=== PATIENT | female | born 1985 | race African-American/Black ===

== ENCOUNTER 2017-01-02 12:15 | Emergency (ER) | payer SELFPAY ==
[~2017-01-02] VITALS: Ht 149.9 cm; Wt 65.8 kg
--- NOTE | 2017-01-02 13:22 | Emergency Room Report ---
History of Present Illness General Chief Complaint: Constipation Source: Patient Present Illness HPI 31-year-old female presents emergency department complaining of constipation x3 days. Patient states she's having to strain more than usual and she isn't as productive as she normally is. Patient reports that she feels she needs medication to help her with bowel movements. Patient states she normally is on the constipated side and will have a bowel movement every 3 days however she states she doesn't usually have to strain this much. she denies rectal pain, denies bloody stool. Denies nausea vomiting, or hx of hemorrhoids. She denies abdominal pain, patient reports abdominal fullness as though she needs to have a bowel movement. denies dysuria, hematuria,rashes, or . denies recent changes in weight, night sweats, personal or familial hx of cancer. Denies CP, Palpitations, LOC, AMS, dizziness, Changes in Vision, Sensation, paresthesias, or a sudden severe headache. Allergies: Coded Allergies: No Known Allergies (Unverified , 01/02/17) Patient History Past Medical History: see triage record Past Surgical History: none Pertinent Family History: none Last Menstrual Period: 12/20/16 Now: No Reviewed Nursing Documentation: PMH: Agreed, PSxH: Agreed Nursing Documentation-PMH Hx Hypertension: Yes Review of Systems All Other Systems: negative except mentioned in HPI Physical Exam Vital Signs Date Time Temp Pulse Resp B/P Pulse Ox O2 Delivery O2 Flow Rate FiO2 01/02/17 12:31 98.2 77 15 162/117 99 Room Air Sp02 EP Interpretation: reviewed, normal General Appearance: no apparent distress, alert, GCS 15, non-toxic Head: normocephalic, atraumatic Eyes: bilateral eye PERRL, bilateral eye normal inspection ENT: hearing grossly normal, normal pharynx, no angioedema, normal voice Neck: full range of motion, supple/symm/no masses Respiratory: lungs clear, normal breath sounds, speaking full sentences Cardiovascular #1: regular rate, rhythm, no edema Gastrointestinal: normal bowel sounds, non tender, soft, non-distended, no guarding, no rebound, other - Negative Redding signs, Negative MacBurney's sign , Negative Rosvigns Sign, Negative Psoas, No Peritoneal signs. Rectal: deferred Genitourinary: normal inspection, no CVA tenderness Musculoskeletal: back normal, gait/station normal, normal range of motion Neurologic: alert, oriented x3, responsive, motor strength/tone normal, sensory intact, speech normal Psychiatric: judgement/insight normal, memory normal, mood/affect normal Skin: normal color, no rash, warm/dry, well hydrated Lymphatic: no adenopathy Medical Decision Making PA Attestation Dr. Freire is my supervising Physician whom patient management has been discussed with. Diagnostic Impression: Primary Impression: Constipation Qualified Codes: K59.00 - Constipation, unspecified ER Course 31-year-old female presents emergency department complaining of constipation x3 days. Patient states she's having to strain more than usual and she isn't as productive as she normally is. Patient reports that she feels she needs medication to help her with bowel movements. Patient states she normally is on the constipated side and will have a bowel movement every 3 days however she states she doesn't usually have to strain this much. she denies rectal pain, denies bloody stool. Denies nausea vomiting, or hx of hemorrhoids. She denies abdominal pain, patient reports abdominal fullness as though she needs to have a bowel movement. denies dysuria, hematuria,rashes, or . denies recent changes in weight, night sweats, personal or familial hx of cancer. Denies CP, Palpitations, LOC, AMS, dizziness, Changes in Vision, Sensation, paresthesias, or a sudden severe headache. Ddx considered but are not limited to constipation , appendicitis, SBO, ectopic , PID, tubo-ovarian abscess. Vital signs: are WNL, pt. is afebrile H&PE are most consistent with constipation. bowl sounds are normo active, no abdominal tenderness- PE was unremarkable. I do not suspect an emergent condition at this time. with current presentation pt. is stable for close outpatient follow up. ORDERS: ED INTERVENTIONS: - Pt declines medications in the ED, declines offer for enema. d/w pt. to return promptly to the ED if she has worsening or new symptoms. DISCHARGE: At this time pt. is stable for d/c to home. Will provide printed patient care instructions, and any necessary prescriptions. Care plan and follow up instructions have been discussed with the patient prior to discharge. Last Vital Signs Date Time Temp Pulse Resp B/P Pulse Ox O2 Delivery O2 Flow Rate FiO2 01/02/17 12:31 98.2 77 15 162/117 99 Room Air Disposition: HOME, SELF-CARE Condition: Stable Scripts Lactulose (LACTULOSE*) 20 Gm/30 Ml Solution 30 ML ORAL BID for 3 Days, #180 ML 0 Refills Prov: Denise Gao 01/02/17 Docusate Sodium* (COLACE*) 100 Mg Capsule 100 MG ORAL THREE TIMES A DAY, #60 CAP Prov: Denise Gao 01/02/17 Patient Instructions: Constipation, Adult Additional Instructions: Take medications as directed. Follow up with PCP in 3-5 days Return sooner to ED if new symptoms occur, or current symptoms become worse. - Please note that this Emergency Department Report was dictated using [employer] line upholsterer technology software, occasionally this can lead to erroneous entry secondary to interpretation by the dictation equipment. Denise Gao Jan 02, 2017 13:22
[2017-01-02] MEDS ORDERED: LACTULOSE20 GM/301 ORAL ×2 (13:24→13:25)
[2017-01-02] MEDS ORDERED: COLACE100 MG ORAL (13:24)
[2017-01-02 13:53] VITALS: BP_SYST 158; BP_SYST 162; BP_DIAS 101; BP_DIAS 117
== END 2017-01-02 13:53 | disposition home or self-care (01) ==
LOC: EMR 13:20
DX: K59.00 Constipation, unspecified (principal); I10 Essential (primary) hypertension
CPT/HCPCS: 99284

== ENCOUNTER 2018-06-02 19:02 | Emergency (ER) | payer MEDICAID ==
[~2018-06-02] VITALS: Ht 152.4 cm; Wt 63.5 kg
[~2018-06-02 19:02] MED LIST: COLACE100 MG ORAL; LACTULOSE20 GM/301 ORAL
[2018-06-02] MEDS ORDERED: Insulin Human Regular 100units/ml 3ml IV ONE ×3 (19:45→21:00)
[2018-06-02 19:50] VITALS: BP 127/92
--- NOTE | 2018-06-02 20:04 | Emergency Room Report ---
History of Present Illness General Chief Complaint: Pain Source: Patient Present Illness HPI Patient presents with complaints of elevated glucose levels reports that she had also increased nausea and vomiting Denies any lower abdominal pain patient reports pain to her left shoulder neuropathy down the left arm Patient had taken her insulin this afternoon however Accu-Chek remained high Denies any photophobia denies any trauma Allergies: Coded Allergies: No Known Allergies (Unverified , 01/02/17) Patient History Past Medical History: see triage record Pertinent Family History: none Last Menstrual Period: february Now: No - unknown Reviewed Nursing Documentation: PMH: Agreed; PSxH: Agreed Nursing Documentation-PMH Hx Hypertension: Yes Hx Diabetes: Yes - dm type 2, dm neupropathy Hx Neurological Problems: Yes - thyroid problem Review of Systems All Other Systems: negative except mentioned in HPI Physical Exam Vital Signs Date Time Temp Pulse Resp B/P (MAP) Pulse Ox O2 Delivery O2 Flow Rate FiO2 06/02/18 19:08 98.8 124 16 127/92 100 Room Air Sp02 EP Interpretation: reviewed, normal General Appearance: well appearing, no apparent distress Head: normocephalic, atraumatic Eyes: bilateral eye PERRL, bilateral eye EOMI ENT: hearing grossly normal, normal pharynx, TMs + canals normal, uvula midline Neck: full range of motion, supple, no meningismus, no bony tend Respiratory: lungs clear, normal breath sounds, no rhonchi, no respiratory distress, no retraction, no accessory muscle use Cardiovascular #1: normal peripheral pulses, regular rate, rhythm, no edema, no gallop, no JVD, no murmur Gastrointestinal: normal bowel sounds, non tender, soft, no mass, no organomegaly, non-distended, no guarding, no hernia, no pulsatile mass, no rebound Genitourinary: no CVA tenderness Musculoskeletal: normal inspection Neurologic: oriented x3, responsive, discharging machine operator III-XII nml as tested, motor strength/ tone normal, sensory intact Psychiatric: mood/affect normal Skin: normal color, no rash, warm/dry, palpation normal Lymphatic: normal inspection, no adenopathy Medical Decision Making Diagnostic Impression: Primary Impression: UTI (urinary tract infection) Additional Impression: Hyperglycemia ER Course With the patient's history and examination, multiple differentials considered, including but not limited to , ectopic , ovarian torsion, gastritis, cholecystitis, pancreatitis, appendicitis Given the diabetes also DKA considered Patient's blood work does not reveal acidosis patient's sugar has responded well to acute intervention patient also does show signs of UTI This is treated to the emergency room Upon review of CURES, patient has received opiates from other provider over the past several months, at this time is recommended to follow closely with primary physician for further opiates However patient provided with other medication including antiemetics and requires close outpatient follow-up with close repeat Accu-Cheks at home Labs Test 06/02/18 19:35 White Blood Count 9.9 K/UL (4.8-10.8) Red Blood Count 4.77 M/UL (4.20-5.40) Hemoglobin 13.8 G/DL (12.0-16.0) Hematocrit 41.2 % (37.0-47.0) Mean Corpuscular Volume 86 FL (80-99) Mean Corpuscular Hemoglobin 28.9 PG (27.0-31.0) Mean Corpuscular Hemoglobin Concent 33.4 G/DL (32.0-36.0) Red Cell Distribution Width 15.2 % (11.6-14.8) Platelet Count 335 K/UL (150-450) Mean Platelet Volume 7.4 FL (6.5-10.1) Neutrophils (%) (Auto) 61.0 % (45.0-75.0) Lymphocytes (%) (Auto) 26.0 % (20.0-45.0) Monocytes (%) (Auto) 10.3 % (1.0-10.0) Eosinophils (%) (Auto) 0.6 % (0.0-3.0) Basophils (%) (Auto) 2.1 % (0.0-2.0) Urine Color Pale yellow Urine Appearance Clear Urine pH 6 (4.5-8.0) Urine Specific [place] 1.010 (1.005-1.035) Urine Protein 1+ (NEGATIVE) Urine Glucose (UA) 4+ (NEGATIVE) Urine Ketones Negative (NEGATIVE) Urine Blood Negative (NEGATIVE) Urine Nitrite Positive (NEGATIVE) Urine Bilirubin Negative (NEGATIVE) Urine Urobilinogen Normal MG/DL (0.0-1.0) Urine Leukocyte Esterase 1+ (NEGATIVE) Urine RBC 0-2 /HPF (0 - 2) Urine WBC 10-15 /HPF (0 - 2) Urine Squamous Epithelial Cells Few /LPF (NONE/OCC) Urine Bacteria Few /HPF (NONE) Urine HCG, Qualitative Negative (NEGATIVE) Sodium Level 129 MMOL/L (136-145) Potassium Level 3.8 MMOL/L (3.5-5.1) Chloride Level 95 MMOL/L (98-107) Carbon Dioxide Level 24 MMOL/L (21-32) Anion Gap 10 mmol/L (5-15) Blood Urea Nitrogen 17 mg/dL (7-18) Creatinine 1.3 MG/DL (0.55-1.30) Estimat Glomerular Filtration Rate 56.8 mL/min (>60) Glucose Level 559 MG/DL (74-106) Calcium Level 10.0 MG/DL (8.5-10.1) Total Bilirubin 0.3 MG/DL (0.2-1.0) Aspartate Amino Transf (AST/SGOT) 19 U/L (15-37) Alanine Aminotransferase (ALT/SGPT) 32 U/L (12-78) Alkaline Phosphatase 67 U/L (46-116) Total Protein 9.7 G/DL (6.4-8.2) Albumin 4.0 G/DL (3.4-5.0) Globulin 5.7 g/dL Albumin/Globulin Ratio 0.7 (1.0-2.7) Lipase 214 U/L (73-393) Last Vital Signs Date Time Temp Pulse Resp B/P (MAP) Pulse Ox O2 Delivery O2 Flow Rate FiO2 06/02/18 19:50 98.8 99 16 127/92 100 Room Air Status: improved Disposition: HOME, SELF-CARE Condition: Improved Scripts Gabapentin* (NEURONTIN*) 100 Mg Capsule 100 MG ORAL THREE TIMES A DAY, #15 CAP 0 Refills Prov: AzucenadorOdin DO 06/02/18 Nitrofurantoin Monohyd/M-Cryst* (MACROBID 100 MG*) 100 Mg Capsule 100 MG ORAL EVERY 12 HOURS for 7 Days, CAP Prov: Siddharthehdor,Ali DO 06/02/18 Ondansetron (Zofran) 4 Mg Tablet 4 MG ORAL Q8HR PRN for Nausea & Vomiting, #12 TAB Prov: AzucenadorOdin DO 06/02/18 Ibuprofen* (MOTRIN*) 600 Mg Tablet 600 MG ORAL Q8H PRN for For Pain, #20 TAB 0 Refills Prov: Odin Patel DO 06/02/18 Referrals: NON PHYSICIAN (PCP) Additional Instructions: Patient is provided with the discharge instructions notified to follow up with primary doctor in the next 2-3 days otherwise return to the er with any worsening symptoms. Please note that this report is being documented using [employer] technology. This can lead to erroneous entry secondary to incorrect interpretation by the dictating instrument. Odin Patel DO Jun 02, 2018 20:04
[2018-06-02 20:10] LABS: APPEARANCE,URINE CLEAR; BILIRUBIN, URINE NEGATIVE (NEGATIVE); COLOR,URINE PALE YELLOW; GLUCOSE, URINE (UA) 4+ (NEGATIVE); KETONES,URINE NEGATIVE (NEGATIVE); LEUKOCYTE ESTERASE ,URINE 1+ (NEGATIVE); NITRITE,URINE POSITIVE (NEGATIVE); PH,URINE 6 (4.5-8.0); PROTEIN,URINE 1+ (NEGATIVE); UROBILINOGEN,URINE NORMAL MG/DL (0.0-1.0)
[2018-06-02 20:14] LABS: BASOPHILS % (AUTO) 2.1 % (0.0-2.0); EOSINOPHILS % (AUTO) 0.6 % (0.0-3.0); HEMATOCRIT 41.2 % (37.0-47.0); HEMOGLOBIN 13.8 G/DL (12.0-16.0); MEAN CORPUSCULAR VOLUME 86 FL (80-99); MONOCYTES % (AUTO) 10.3 % (1.0-10.0); PLATELET COUNT 335 K/UL (150-450); RED BLOOD COUNT 4.77 M/UL (4.20-5.40); RED CELL DISTRIBUTION WIDTH 15.2 % (11.6-14.8); WHITE BLOOD COUNT 9.9 K/UL (4.8-10.8)
[2018-06-02] MEDS ORDERED: Morphine Sulfate 4mg/ml Inj (IV/IM USE ONLY) IVP ONE (20:30)
[2018-06-02] MEDS ORDERED: cefTRIAXone 1 GM in NS 55 ML IVPB ONE (20:30)
[2018-06-02 20:32] LABS: ALANINE AMINOTRANSFERASE 32 U/L (12-78); ALBUMIN/GLOBULIN RATIO 0.7 (1.0-2.7); ALKALINE PHOSPHATASE 67 U/L (46-116); ANION GAP 10 mmol/L (5-15); ASPARTATE AMINO TRANSFERASE 19 U/L (15-37); BILIRUBIN,TOTAL 0.3 MG/DL (0.2-1.0); BLOOD UREA NITROGEN 17 mg/dL (7-18); CARBON DIOXIDE 24 MMOL/L (21-32); CHLORIDE 95 MMOL/L (98-107); CREATININE 1.3 MG/DL (0.55-1.30); POTASSIUM 3.8 MMOL/L (3.5-5.1); SODIUM 129 MMOL/L (136-145)
[2018-06-02] MEDS ORDERED: HUMULIN 70100 UNIT/3 SQ (20:42)
[2018-06-02] MEDS ORDERED: ATORVASTATIN CA20 MG ORAL (20:42)
[2018-06-02] MEDS ORDERED: AMLODIPINE-ATO1 EACH ORAL (20:42)
[2018-06-02] MEDS ORDERED: LEVOTHYROXINE125 MCG ORAL (20:42)
[2018-06-02] MEDS ORDERED: FERROUS SULFAT325 MG ORAL (20:42)
[2018-06-02] MEDS ORDERED: GABAPENTIN600 MG ORAL (20:42)
[2018-06-02] MEDS ORDERED: HUMULIN N100 UNIT/4 SQ (20:42)
[2018-06-02] MEDS ORDERED: LISINOPRIL40 MG ORAL (20:42)
[2018-06-02] MEDS ORDERED: IBUPROFEN600 MG ORAL (21:14)
[2018-06-02] MEDS ORDERED: ZOFRAN4 M1 ORAL (21:14)
[2018-06-02] MEDS ORDERED: NITROFURANTOIN100 M2 ORAL (21:14)
[2018-06-02] MEDS ORDERED: NEURONTIN100 MG ORAL (21:15)
[2018-06-02 21:34] VITALS: BP 135/98
== END 2018-06-02 21:38 | disposition home or self-care (01) ==
LOC: EMR 19:30
DX: E11.65 Type 2 diabetes mellitus with hyperglycemia (principal); N39.0 Urinary tract infection, site not specified; E11.40 Type 2 diabetes mellitus with diabetic neuropathy, unspecified; I10 Essential (primary) hypertension
CPT/HCPCS: 36415; 80053; 81003; 81025; 82962; 83690; 85025; 87086; 96361; 96365; 96375; 99284; J0696; J1815; J2270